=== PATIENT | male | born 1940 | race Caucasian/White ===

== ENCOUNTER → 2024-07-20 13:26 | Outpatient (REF) | payer MEDICARE, SELFPAY | LOC: HWRAD 13:26 | PROVIDERS: ATTENDING PHYSICIAN Chiropractor; FAMILY PHYSICIAN Family Medicine | DX: M53.2X7 Spinal instabilities, lumbosacral region (principal); R10.2 Pelvic and perineal pain | CPT/HCPCS: 72110; 72170 ==

== ENCOUNTER 2025-06-09 19:09 | Inpatient (IN) | payer MEDICARE, SELFPAY ==
[2025-06-09] VITALS (15 sets, daily range): BP systolic 135–166; BP diastolic 37–69; BMI 27.7; BMI 26.9
--- NOTE | 2025-06-09 15:27 | ED.GENMED ---
History of Present Illness
General
Chief Complaint: Heart Rate Problem
Source: patient
Exam Limitations: none
Time Seen by Provider: 06/09/25 15:12
Nursing documentation reviewed up to this point in time: agreed with
History of Present Illness
History of Present Illness:
85-year-old male with a past medical history of hypertension, hyperlipidemia, diabetes, pancreatic cancer status post Whipple who presents to the emergency department for evaluation of weakness�he was sent in by urgent care after found to be
markedly bradycardic on EKG. Patient reports that for the past month or 2 he has had progressive intermittent weakness and shortness of breath particularly with activity. He says that he has had recently some increasing lightheadedness when moving
around. He says that last night he got up to go to the bathroom and was so weak that he fell down which ultimately prompted his friend to take him to urgent care today for evaluation of his weakness. Fortunately he says he did not suffer any
injuries during the fall, did not hit his head or sustain any injuries to his extremities. He is not on any blood thinners. He has not had any chest pain, fever, chills, cough. Has not had any swelling in the legs. No other acute issues
recently. At urgent care today was found to be markedly bradycardic�patient says that his heart rate normally runs low in the 50s or 40s but never in the 30s as it has been today. He says that he sees a director of loss prevention named Dr. Mccain but to his
knowledge has not had any cardiac issues and says that he is not on any medicines for his heart.
Review of Systems
Review of Systems
All Other Systems: ROS reviewed and negative except as documented in HPI and ROS
Constitutional: Denies fever
Respiratory: Reports trouble breathing; Denies cough
Cardiac: Denies chest pain or palpitations
ABD/GI: Denies abdominal pain, nausea or vomiting
: Denies flank pain
Musculoskeletal: Denies neck pain or back pain
Neurological: Reports dizzy; Denies headache
Phy Exam
Physical Exam
Physical Exam:
General: Awake, alert, oriented x3; no acute distress
Head: Normocephalic, atraumatic
Eyes: Conjunctiva normal, pupils equal round and reactive to light bilaterally
Throat: Airway intact, handling secretions
Neck: Trachea midline, no JVD noted, no cervical spine tenderness
Back: No signs of trauma to the back or flank
Lungs: Clear to auscultation bilaterally, no wheezing, rales, rhonchi
Heart: Bradycardia with regular rhythm, no murmurs, gallops, or rubs appreciated
Abd: Soft, non distended, nontender
Neuro: Cranial nerves grossly intact, speech fluid, motor and sensory grossly intact
Skin: No signs of acute trauma
Extremities: Extremities are atraumatic, no edema in extremities, equal pulses in all extremities; he is moving all extremities equally without any pain
Scores
Heart Failure Risk
Heart Failure Risk Score: Not Applicable
Heart Score for Chest Pain Patients
STEMI patient?: Not applicable
Withdrawal Assessment of Alcohol
Withdrawal Assessment Completed?: Not applicable
Course
Orders/Labs/Results
Orders:
Orders
06/09/25 14:54
Electrocardiogram (*1) Urgent
Reason for Study: Bradycardia / Tachycardia
EKG- Treatment ONCE
06/09/25 15:25
CARDIOLOGY CONSULT Urgent
Consulting Provider: Yamil Garcia
Was physician already notified: Yes
06/09/25 15:26
Cardiac Monitoring- Treatment ONCE
IV Insert/Care/Rem.- Treatment PRN
Vital Signs- Treatment ONCE
Frequency: Hourly
Atropine Sulfate [Atropine 0.1 mg/ml Syringe] 1 mg .ROUTE .STK-MED ONE
CR Chest Portable - 1 View Urgent
Comment:
Reason For Exam: weakness
Reason Study Needs to be Portable: Unable to Transport
Pulse Ox/cont/shift [RESP] Stat
Quantity: 1
06/09/25 15:27
Complete Blood Count/With Diff Urgent
Comprehensive Metabolic Panel Urgent
Magnesium Urgent
TSH Reflex To Free T4 Urgent
Troponin I Urgent
06/09/25 15:29
EKG [Electrocardiogram (*1)] Urgent
Reason for Study: Bradycardia / Tachycardia
EKG- Treatment ONCE
06/09/25 16:14
PTT Urgent
Prothrombin Time Urgent
06/09/25 17:02
Echo 2D MMode Color/Doppler Routine
Reason for Study: complete heart block
06/09/25 17:03
Lactate Level [Lactic Acid] Urgent
Urinalysis Reflex To Culture Urgent
Date Specimen was Collected: 06/09/25
Time Specimen was Collected: 17:11
06/09/25 17:13
0.9% Sodium Chloride 1000 ml [Nss] 1,000 ml IV BOLUS
06/09/25 17:14
Add On- LAB Urgent
Tests Added?: urine sodium, urine osml
CPK [Creatine Phosphokinase] Urgent
Insulin Aspart [NOVOLOG vial] 5 units SC NOW STA
06/09/25 17:15
Blood Culture Q30M
LANIE Source: Blood/Venous
Specimen Description:
06/09/25 17:45
Blood Culture Q30M
LANIE Source: Blood/Venous
Specimen Description:
Abnormal Lab Results
06/09/25 06/09/25
15:27 16:14
WBC 26.6 H 10^3/uL
(4.8-10.8)
RBC 4.35 L 10^6/uL
(4.70-6.10)
Hgb 11.9 L g/dL
(13.0-18.0)
Hct 35.8 L %
(39.0-52.0)
PT 18.2 H Sec
(11.4-14.6)
APTT 58.3 H Sec
(23.4-35.0)
Sodium 126 L mmol/L
(135-145)
Potassium 5.8 H mmol/L
(3.5-5.1)
Chloride 97 L mmol/L
(98-107)
BUN 24 H mg/dl
(9-20)
Creatinine 1.4 H mg/dL
(0.7-1.3)
Glucose 369 H mg/dl
(70-99)
Troponin I 0.056 H* ng/ml
Total Protein 5.6 L g/dl
(6.3-8.2)
Albumin 3.1 L g/dl
(3.5-5.0)
06/09/25 15:27
06/09/25 15:27
Vital Signs
Initial and Last Documented VS:
Initial Vital Signs
Temp Pulse Resp BP Pulse Ox
36.6 C 30 18 166/67 98
06/09/25 14:56 06/09/25 14:56 06/09/25 14:56 06/09/25 14:56 06/09/25 14:56
Last Documented Vital Signs
Temp Pulse Resp BP Pulse Ox
36.6 C 31 13 146/43 96
06/09/25 14:56 06/09/25 16:45 06/09/25 16:45 06/09/25 16:40 06/09/25 16:45
MDM/Problems Addressed
Differential Diagnosis Includes:
2-1 heart block: Primary carlos-arrhythmia, hypothyroidism, electrolyte abnormality,etc
MDM/Problems Addressed:
85-year-old male with history as noted presents for generalized weakness as described above. Went to urgent care initially and noted to have significant bradycardia and was sent to the ER. He is actually hypertensive here and heart rate 30, EKG in
triage shows Mobitz type II heart block. Brought back to a room and placed on medical clerical assistant, IV established and labs sent off including CBC and a CMP, thyroid studies, troponins. He is not on any AV chitra blocking agents. Case discussed with
cardiology for consultation, plan for likely IMU admission and pacer tomorrow.
Labs reviewed: CBC showed marked leukocytosis to 26.6�patient denies any recent fevers or infectious symptoms. His chest x-ray showed no pneumonia. Added urinalysis, lactate and blood cultures for complete infectious workup but at this point no
clear infectious etiology to leukocytosis. His chemistry shows mild to moderate hyponatremia with sodium of 126, renal insufficiency with elevated BUN and creatinine, hyperkalemia as well as hyperglycemia. Suspect hemoconcentration is contributing
to all these lab normalities and IV fluids ordered. I also added CPK given report of fall last night although no prolonged downtime described. Added urine sodium and osmolality. Will treat with subcu insulin for hyperglycemia. Will admit for
continued treatment. Discussed case with hospitalist.
Chronic conditions affecting care:
Insulin-dependent diabetes
Acute Exacerbation and/or Progression of Chronic Illness:
Acute hyperglycemia managed with insulin
Acute hyponatremia managed with sodium chloride infusion
*Radiology
Radiology exam reviewed: radiology read reviewed
*Pulse Oximetry
SaO2: 99
Oxygen Mode of Delivery: Room air
Patient hypoxic: no (99%)
*EKG
Interpreted by ED Provider?: Yes
Heart Rate: 31
Rate: normal
Rhythm: sinus
[place]: left axis deviation
Interval: second degree mobitz II
QRS Pattern: right bundle branch block
Ischemia: no ischemia
*Critical Care Note
Total Time (30-74mins, 75-104mins- exclusive of procedures): 35
comment:
Critical care statement: A total of 35 minutes of critical care time was provided for this patient. This includes management of unstable vital signs, evaluation of the patient at bedside, frequent reassessment, discussion with
consultants/hospitalist, and review of pertinent medical records. This time was separate from time utilized to perform any aforementioned documented procedures
Data Reviewed
Source: patient and significant other
Patient Management
Discussion with other providers: Hospitalist (Discussed with hospitalist) and Renewals Representative (Discussed with cardiology)
Escalation/DeEscalation of care consider admission/obs:
Admission indicated
ED Attending Note
-
Portions of this chart may have been created with voice recognition software.� Occasional wrong word or��sound alike� substitutions may have occurred due to the inherent limitations of voice recognition software.
Discharge Plan
Departure
Patient Disposition: Admit
Date of Disposition: 06/09/25
Time of Disposition: 17:10
Admit to doctor: Fanny
Presentation/result/management discussed w/ accepting MD/DO: Hospitalist
Discharge Problem:
Mobitz type 2 second degree heart block, Leukocytosis, Hyperglycemia, ADELAIDA (acute kidney injury), Hyponatremia
Referrals:
Nishant Chavez MD [Family Provider, Family Practice]
Interventions
Interventions:
*Risk Screen - Suicide Last Done: 06/09/25 15:01
*General Assessment Last Done: 06/09/25 15:01
*Neglect/Abuse Screening Last Done: 06/09/25 15:01
*ED COVID-19 Vaccine History Last Done: 06/09/25 15:01
ED- Cardiac Assessment Last Done: 06/09/25 15:35
ED- Pulmonary Assessment Last Done: 06/09/25 15:35
Discharge Date and Time
Print Language: SLOVAK
[2025-06-09 16:03] LABS: Hematocrit 35.8 % (39.0-52.0); Hemoglobin 11.9 g/dL (13.0-18.0); Mean Corp Hgb Conc. 33.2 g/dL (33.0-37.0); Mean Corpuscular Volume 82.3 fL (80.0-94.0); Platelet Count 288 10^3/uL (130-400); Red Cell Dist. Width 13.9 % (11.5-14.5)
[2025-06-09 16:13] LABS: ALT (SGPT) 29 U/L (0-50); AST (SGOT) 44 U/L (17-59); Albumin 3.1 g/dl (3.5-5.0); Alkaline Phosphatase 116 U/L (38-126); Blood Urea Nitrogen 24 mg/dl (9-20); Calcium 9.4 mg/dl (8.4-10.2); Carbon Dioxide 25 mmol/L (22-30); Chloride 97 mmol/L (98-107); Estimated Creatinine Clearance 37 ml/min; Glucose 369 mg/dl (70-99); Magnesium 1.9 mg/dl (1.6-2.3); Potassium 5.8 mmol/L (3.5-5.1); Sodium 126 mmol/L (135-145); Total Protein 5.6 g/dl (6.3-8.2); eGFR 48.95
[2025-06-09 16:29] LABS: Troponin I 0.056 ng/ml
[2025-06-09 16:39] LABS: INR 1.48; PT 18.2 Sec (11.4-14.6)
[2025-06-09 16:40] LABS: APTT 58.3 Sec (23.4-35.0)
[2025-06-09] MEDS: NSS 1000 IV ×2 (17:15→17:22)
[2025-06-09] MEDS: NOVOLOG vial 5 UNITS SC (17:22)
--- NOTE | 2025-06-09 17:31 | HPS.HSE ---
Addendum entered and electronically signed by Coby Arenas MD 06/09/25 18:35:
if patient hypertensive - resume Amlodipine
Hyperkalemia
-hold Losartan as below
-Lokelma x 1 (also post fluids)
-repeat BMP this evening
Addendum entered and electronically signed by Coby Arenas MD 06/09/25 18:30:
Non Ischemic Troponin Elevation
-no chest pain
-continue to trend
Addendum entered and electronically signed by Coby Arenas MD 06/09/25 18:27:
Essential HTN
-hold BUSINESS SYSTEMS DEVELOPER Amlodipine
-hold Losartan-HCTZ
-monitor BP, may need PRN IV Hydralazine
Original Note:
Family Physician
-
Family Physician: Nishant Chavez
Chief Complaint
-
weakness
History of Present Illness
Mr. Luke Dozier is a 85 yo man with hx HTN, HLD, DM, pancreatic cancer s/p Whipple who was seen at urgent care for weakness, sent to ER for finding of bradycardia to 30's.
Patient states he has been feeling weak over past several month. He has also been caring for his (recent TAVR) and so reports not paying attention to his symptoms. Yesterday evening he slid off bed and had difficulty getting up, he felt too
weak.
He denies recent fevers/chills. No cough/congestion. No chest pain. He states he has been eating and drinking well. No LE swelling.
Medical History
Past Medical History
Past Medical History: Reports Other ( HTN, HLD, DM, pancreatic cancer s/p Whipple)
Past Surgical History: Reports Other (ipple )
Social History
Tobacco: Non-smoker
Alcohol: None
Family History
Family History: Not pertinent
Allergies / Home Medications
Allergies reflects when Allergies were last updated in [employer].
Home Medications with original date entered in [employer]
Allergy/Medication List:
Allergies
Allergy/AdvReac Type Severity Reaction Status Date / Time
No Known Allergies Allergy Unverified 06/09/25 14:57
Home Medications
amlodipine 5 mg tablet 5 mg PO DAILY 06/09/25
dabigatran etexilate 150 mg capsule (Pradaxa) 150 mg PO BID 06/09/25
glimepiride 4 mg tablet 4 mg PO DAILY 06/09/25
insulin glargine 100 unit/mL subcutaneous solution (Lantus U-100 Insulin) 10 unit SC QPM 06/09/25
insulin lispro 100 unit/mL subcutaneous pen 6 unit SC TID 06/09/25
shpvwl-tcxzelgc-ertfyng 12,000-38,000-60,000 unit capsule,delayed rel (Creon) 1 cap PO TID 06/09/25
losartan 100 mg-hydrochlorothiazide 25 mg tablet 1 tab PO DAILY 06/09/25
metformin 500 mg tablet,extended release 24 hr 1,000 mg PO BID 06/09/25
rosuvastatin 5 mg tablet 5 mg PO DAILY 06/09/25
Review of Systems
-
History Source: Patient
A 12 point ROS was completed and negative except as noted: Yes
Physical Exam
Vital Signs
Vital Signs
Temp Pulse Resp BP Pulse Ox
97.8 F 31 13 146/43 96
06/09/25 14:56 06/09/25 16:45 06/09/25 16:45 06/09/25 16:40 06/09/25 16:45
Physical Exam
General: No Apparent Distress and Conversant
HEENT: PERRLA
Respiratory: Clear; No Wheezes
Cardiac: Regular Rhythm and Bradycardia
GI: Soft and Non Tender
Musculoskeletal: No Edema
Skin: Warm and Dry; No Rash
Neuro: AO x 3
Psych: Calm
Laboratory Results
-
06/09/25 15:27
06/09/25 15:27
Laboratory Results
PT 18.2 Sec (11.4-14.6) H 06/09/25 16:14
INR 1.48 06/09/25 16:14
APTT 58.3 Sec (23.4-35.0) H 06/09/25 16:14
Total Bilirubin 0.5 mg/dl (0.2-1.3) 06/09/25 15:27
AST 44 U/L (17-59) 06/09/25 15:27
ALT 29 U/L (0-50) 06/09/25 15:27
Alkaline Phosphatase 116 U/L (38-126) 06/09/25 15:27
Troponin I 0.056 ng/ml H* 06/09/25 15:27
Data Reviewed
-
Diagnostic Radiology: Report Reviewed by me
Lab Data: Labs Reviewed by me
Impression/Plan
-
Mr. Luke Dozier is a 85 yo man with hx HTN, HLD, DM, pancreatic cancer s/p [place] who was seen at urgent care for weakness, sent to ER for finding of bradycardia to 30's.
Triage VS: T 36.6, P 30, RR 18, BP 166/67, SpO2 98%
LABS: WBC 26.6, Hg 11.9, PLT 288, Na 126, K+ 5.8, Cl 97, Cr 1.4, Glucose 369, Magnesium 1.9, T. Bili 0.5, AST 44, ALT 29, Alk Phos 116
Trop 0.056
TSH 1.54
EKG: sinus bradycardia @ 31, 1st degree AV block, RBBB, Left anterior fascicular block
CXR
IMPRESSION:
1. Normal heart size without radiographic evidence for acute pulmonary edema.
2. Mild elevation of the right hemidiaphragm.
3. Cardiac pacemaker-defibrillator pads projecting over the mediastinum.
MAR: 5 units IV insulin, NS 1L
Symptomatic Bradycardia
-seen by Cardiology in the ER
-admit to IMU
-pacer pads on patient, atropine at bedside
-during my interview, HR in 50's
-He is not on AV blocking medications at home
-hold Pradaxa (he is not sure why he is on this medication)
-follow up Lyme testing
-NPO for PPM tomorrow
*Use of Pradaxa - patient is unsure why he is on this medication. He denies history of atrial fibrillation. Per , may have been started by Vascular surgeon. Will hold for now, obtain records.
Leukocytosis
-patient without signs of infection
-CXR without e/o pneumonia.
-test covid, follow up UA and blood cultures
-follow up Lyme as above
Hyponatremia
-patient is on Losartan - HCTZ at home - hold
-receiving fluids in ER given bradycardia concern for poor perfusion
-urine studies ordered
-hold further fluids and fluid restrict
-repeat labs at 11:30 PM (RN to touch base with overnight provider)
Mild ADELAIDA
-creatinine obtained recently was 1.2
-follow up repeat post fluids
-hold Losartan-HCTZ
DM
Hyperglycemia
-follow up A1c
-1/2 dose Lantus this evening as patient will be NPO
-hold BUSINESS SYSTEMS DEVELOPER Glimepiride and Metformin
-resume Lispro when diet ordered
-repeat BGL now and will order additional short acting insulin
Pancreatic CA s/p Whipple
-Creon with meals
DVT PPx SCD
FULL CODE
76 minutes spent on patient care
[2025-06-09 17:33] LABS: Nucleated Red Blood Cells % 0 % (-)
[2025-06-09 17:43] LABS: Urine Character Clear (Clear)
--- NOTE | 2025-06-09 17:46 | CON.CAR ---
Consultation
Consultation Request
Date/Time Consultation Requested: June 09, 2025
Date/Time Consultation Performed: June 09, 2025
Requesting Provider: ER and hospitalist
Performing Provider: Jose
Reason for Consultation: Complete heart block
Medical History
-
Chief Complaint: Complete heart block
History of Present Illness:
Luke is here with his partner and is a very pleasant 85-year-old male who has 3 months of fatigue and dyspnea with any exertion. No syncope or presyncope. He presents with a heart rate of 30 and complete heart block with a right bundle branch
escape. Remote Whipple for pancreatic cancer 16 years ago doing well. He does have hyponatremia hyperkalemia creatinine 1.4 sugar in the 300s and white blood cell count of 26 on presentation. Discussed case with internal medicine team and they
will be working him up for any signs of infection.
Past Medical History
Past Medical History: Arrhythmias and Cancer
Past Surgical History: Other (Whipple)
Social History
Tobacco: Former Smoker
Alcohol: None
Drug: None
Personal: Partner
Living: With Family
Employment: Not Employed
Family History
Family History: Reviewed & Not Pertinent
Allergies / Home Medications
Allergy/AdvReac Type Severity Reaction Status Date / Time
No Known Allergies Allergy Unverified 06/09/25 14:57
Review of Systems
-
All other systems: Negative unless noted
Constitutional: Fatigue
Physical Exam
Vital Signs
Temp Pulse Resp BP Pulse Ox
97.8 F 31 13 146/43 96
06/09/25 14:56 06/09/25 16:45 06/09/25 16:45 06/09/25 16:40 06/09/25 16:45
Lab Results
06/09/25 15:27
06/09/25 15:27
Troponin I 0.056 ng/ml H* 06/09/25 15:27
Physical Exam
General: Well Developed and Well Nourished
HEENT: Normocephalic and Anicteric
Respiratory: Clear
Cardiac: S1/S2 and Regular Rhythm
Breast: Deferred by me
GI: Soft, Non Tender and Non Distended
Rectal: Deferred by Provider
Musculoskeletal: No Clubbing and No Cyanosis
Skin: Warm, Dry and Rash
Neuro: Awake, Alert and Oriented
Hematologic/Lymphatic: No Lymphadenopathy
Psych: Calm
Impression / Plan
-
Impression:
Complete heart block�duration likely 2 to 3 months
History of Whipple procedure 16 years ago
Sees a rolled ham lacer at [facility]
Hyponatremia
Hyperkalemia
Leukocytosis
Renal insufficiency
Recommendations:
Discussed case with primary service and agreement. Appreciate workup for infection with urinalysis chest x-ray and as per their recommendations.
Agree with gentle hydration and recheck of labs
Echo in a.m.
N.p.o. after midnight for dual-chamber pacemaker via the left shoulder and discussed a 1000 risk of and a 1% risk of pneumothorax tamponade infection or bleeding. Placed device orders. I communicated with patient and partner that procedure
would either be late in the day tomorrow or late in the day Tuesday. They are in understanding.
Data Reviewed
-
EKG: Tracing Personally Visualized and interpreted
Radiology: Image Personally Visualized and interpreted
Labs: Labs Reviewed by me
Old Records: Requested and Reviewed
[2025-06-09 18:05] LABS: Urine Red Blood Cell 0-2 /HPF (0-2)
[2025-06-09] MEDS: LOKELMA 10 GRAM PO (18:31)
[2025-06-09 18:34] LABS: COVID-19 Antigen Negative (Negative)
[2025-06-09 18:38] LABS: Glucose - Point of Care 308 mg/dl (70-99)
[2025-06-09] MEDS: NOVOLOG vial 6 UNITS SC (19:20)
--- NOTE | 2025-06-09 20:58 | PTCARENOTE ---
Received pt from ED via stretcher. Pt AAOx3. SB on monitor with 1st degree AV block, BBB, and prolonged QT. Asymptomatic at this time. Pacer pads on pt. Atropine at bedside per order. Pulse ox 97% on RA; lungs CTA. Oriented pt to room.
Hygiene provided. Pt resting in bed with call garvey in reach.
[2025-06-09] MEDS: LANTUS 0.05 UNITS SC (23:11)
[2025-06-09 23:20] LABS: Glucose - Point of Care 72 mg/dl (70-99)
[2025-06-10] VITALS (15 sets, daily range): BP systolic 101–184; BP diastolic 38–148
[2025-06-10 00:03] LABS: Blood Urea Nitrogen 22 mg/dl (9-20); Calcium 9.2 mg/dl (8.4-10.2); Carbon Dioxide 25 mmol/L (22-30); Chloride 105 mmol/L (98-107); Estimated Creatinine Clearance 39 ml/min; Glucose 74 mg/dl (70-99); Potassium 4.3 mmol/L (3.5-5.1); Sodium 133 mmol/L (135-145); eGFR 53.50
[2025-06-10 00:15] LABS: Troponin I 0.037 ng/ml
[2025-06-10 03:41] LABS: Glucose - Point of Care 101 mg/dl (70-99)
[2025-06-10 05:24] LABS: Glucose - Point of Care 143 mg/dl (70-99)
[2025-06-10 05:58] LABS: Blood Urea Nitrogen 22 mg/dl (9-20); Calcium 9.3 mg/dl (8.4-10.2); Carbon Dioxide 23 mmol/L (22-30); Chloride 106 mmol/L (98-107); Estimated Creatinine Clearance 47 ml/min; Glucose 119 mg/dl (70-99); Hematocrit 30.6 % (39.0-52.0); Hemoglobin 10.5 g/dL (13.0-18.0); Magnesium 2.0 mg/dl (1.6-2.3); Mean Corp Hgb Conc. 34.3 g/dL (33.0-37.0); Mean Corpuscular Volume 80.7 fL (80.0-94.0); Nucleated Red Blood Cells % 0 % (-); Platelet Count 226 10^3/uL (130-400); Potassium 4.1 mmol/L (3.5-5.1); Red Cell Dist. Width 13.8 % (11.5-14.5); Sodium 133 mmol/L (135-145); eGFR > 60.00
[2025-06-10] MEDS: ZENPEP DELAYED RELEASE CAPSULE PO ×2 (07:42→12:09)
[2025-06-10 10:39] LABS: Glycohemoglobin (HgbA1c) 7.7 % (4.0-5.6)
--- NOTE | 2025-06-10 11:08 | PTCARENOTE ---
Pt received from awake overnight monitor RN. Pt Ox3 and [place]. No complaints at this time. Sinus carlos on tele with a BBB, HR dips down to 38 at times but does not sustain. BP stable. Pacer pads in place and atropine at bedside. Pt using urinal without
difficulty. Pt currently resting in bed with no complaints. Pt's at bedside, updated on plan of care.
[2025-06-10 11:46] LABS: Glucose - Point of Care 161 mg/dl (70-99)
--- NOTE | 2025-06-10 12:04 | CM ---
Initial assessment completed with patient who lives with his SO in a 1 story home plus loft with B/B on , 1 step to enter. 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 No DME. No in-home services. Does have a HC-POA. Was in the
[employer] and has VA benefits. No psychiatric hospitalizations. PCP is Dr. Nishant Chavez. [facility]acy is [facility] in [place]. Patient is for double chamber pacer today for complete heart block. Discharge POC: Anticipate home with no needs.
--- NOTE | 2025-06-10 13:37 | W.PN.HOSP.TC ---
Today's Communication/Plan
-
Monitor vital signs
see plan
Plan for pacemaker
Discussed with spouse at bedside
lyme serology pending
Echo
Assessment / Plan
Assessment / Plan
General: No Apparent Distress and Conversant
HEENT: PERRLA
Respiratory: Clear; No Wheezes
Cardiac: Regular Rhythm and Bradycardia
GI: Soft and Non Tender
Musculoskeletal: No Edema
Neuro: AO x 3
Psych: Calm
Symptomatic Bradycardia
Cardiology following, plan for pacemaker
-pacer pads on patient, atropine at bedside
-during my interview, HR in 50's
-He is not on AV blocking medications at home
-hold Pradaxa (he is not sure why he is on this medication). Per spouse likely was started by PCP to prevent stroke
-follow up Lyme testing
-NPO for PPM
echo
*Use of Pradaxa - patient is unsure why he is on this medication. He denies history of atrial fibrillation. Per , may have been started by ?Vascular surgeon. Will hold for now, obtain records.
Leukocytosis
-patient without signs of infection
-CXR without e/o pneumonia.
COVID-negative, UA noted. Follow urine culture, blood
-test covid, follow up UA and blood cultures
-follow up Lyme as above
Hyponatremia
-patient is on Losartan - HCTZ at home - hold
-receiving fluids in ER given bradycardia concern for poor perfusion
-urine studies ordered
-hold further fluids and fluid restrict
Sodium improving, 133 today. Monitor
Mild ADELAIDA
Improving
-follow up repeat post fluids
-hold Losartan-HCTZ
Essential HTN
-hold MANAGER CARDIAC CATH Amlodipine
-hold Losartan-HCTZ
-monitor BP, may need PRN IV Hydralazine
Non Ischemic Troponin Elevation
-no chest pain
-continue to trend
Hyperkalemia
-hold Losartan as below
-Lokelma x 1 on admission, resolved
DM
Hyperglycemia
-follow up A1c 7.7
-1/2 dose Lantus on admission as NPO
-hold MANAGER CARDIAC CATH Glimepiride and Metformin
-resume Lispro when diet ordered
-repeat BGL now and will order additional short acting insulin
Pancreatic CA s/p Whipple
-Creon with meals
DVT PPx SCD
FULL CODE
I spent a total of 53 minutes with the patient or on the floor. More than 50% of this time involved counseling and coordination of care.
Anticipated Discharge: 24 - 48 hours
Subjective/Interval History
-
Date of Service: June 10, 2025
Denies chest pain
Objective Data
-
Labs:
Laboratory Results
06/10/25
05:22
WBC 17.6 H
Hgb 10.5 L
Hct 30.6 L
Plt Count 226 D
Sodium 133 L
Potassium 4.1
Chloride 106
Carbon Dioxide 23
BUN 22 H
Creatinine 1.1
Glucose 119 H
Calcium 9.3
Vital Signs:
Vital Signs
Temp Pulse Resp BP Pulse Ox
97.9 F 50 11 122/38 97
06/10/25 11:25 06/10/25 04:00 06/10/25 04:00 06/10/25 04:00 06/10/25 11:51
I&O
06/09/25 06/10/25 06/11/25
06:59 06:59 06:59
Intake Total 240 / 240
Output Total 425 / 425 225 / 225
Balance -185 / -185 -225 / -225
[2025-06-10 15:57] LABS: Lyme Antibody Screen, EIA Negative (Negative)
--- NOTE | 2025-06-10 16:53 | ITS.CL.PACE ---
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
Pacemaker Implant
Procedure Report:
Left Bundle Branch pacing Permanent Pacemaker Placement:
Mr. Nieto is an 85 years old gentleman with severe bradycardia and pre-syncope with intermittent heart block is here in EP lab for pacemaker implantation.
Indications:
Severe symptomatic bradycardia, and high grade AV block
Date of the Procedure:
06/10/2025
Pre-Operative Diagnosis:
Severe symptomatic bradycardia, and high grade AV block
Post-Operative Diagnosis: Severe symptomatic bradycardia, and high grade AV block
Procedure Performed: Conduction system pacing Pacemaker implantation
Performing Physician:
Rhonda Wei MD
Assistants:
EP staff
Anesthesia:
See anesthesia records
Detailed Description of the Procedure:
The patient was identified using hospital identification and informed consent obtained for the procedure. The risks were explained to the patient and the family including, but not limited to: Bleeding, infection, arrhythmia, stroke,
vascular/cardiac/lung puncture, surgery, pacemaker dependency/device malfunction. All questions were answered.
Anesthesia service provided sedation as reported separately. Antibiotics administered IV for risk of bacterial colonization. After obtaining informed and written consent, the patient was brought to the electrophysiology laboratory.
The initial rhythm was sinus bradycardia.
The left chest was prepped from the nipple to the angle of the jaw with chlorhexidine, and draped following sterile technique in usual routine.�
A surgical pause and time out was performed immediately prior to the procedure with review of her medical history, recent labs, allergies and medications with site of procedure identified and consent noted in the chart. Antibiotics pre operatively
given. All team members concurred.
The left infraclavicular region was prepped and draped in the usual sterile fashion. Local anesthesia was administered subcutaneously using 1% lidocaine / Bupivacaine. The venogram was done and axillary vein route identified. Using micropuncture
apparatus, axillary vein was cannulated. The vascular sheaths over guidewires were introduced for lead access. Guidewires were placed and were advanced into the right ventricle and the right atrium.
The guide wire was advanced to the RA and was crossed through the tricuspid valve into the RV. The preformed curved long hemostatic peel away HIS sheath was advanced into the RV cavity. A left bundle pacing wire was advanced into the sheath to the
tip with ventricular signals noted with unipolar manner. The HIS location was identified under guidance of the flouroscopy and the pacing wire signals. The sheath with the pacing lead was moved deeper into the RV cavity on the septum at a more
inferior and distal to the HIS signals.
Once adequate signals were noted on the electrograms of the pacing lead in the sheath with W pattern signals on the RV septum, the lead was advanced and clockwise turns were done under fluoroscopic guidance. The septum was engaged and the lead was
paced intermittently after every 2-3 turns. The Impedance of the lead was measured that remained stable around 8-900 Ohm and the lead was not able to advance into the septum. The pacing signals from the lead showed only RV septal pacing, though
narrow but not left bundle pacing. This was thought to be due to the entanglement effect of the lead to the septal endocardium. The decision was made to remove the lead and relocate to another locations.
Another septal location was identified with adequate signals noted on the pacing leads and good flouroscopic location. There was sheath approximation conformed on MACEDONIAN view and the pacing lead was advanced with clockwise turns into the septal
location. The septum was successfully engaged. The lead was paced and septal pacing was noted. The sheath was placed again to the septum and the lead was advanced 2-3 turns with pacing with each advancement. The ventricular capture was monitored
throughout and the captures gradually changed from RV pacing to non-selective pacing to LBB pacing with R wave on V1.
With RBBB pattern noted on the pacing lead, it was decided to accept the location as optimal location. The long guiding sheath was cut and removed from the RV without change in lead position, impedance, sensing, or capture. The lead was sutured to
the underlying pectoralis fascia with 2-0 Ethibond stitches.
Using a peel away 7Fr sheath, atrial lead was placed in the right atrial appendage with active fixation. Excellent sensing, threshold and impedance noted.
A purse string suture was deployed using the 2-0 Vicryl suture.
The leads were attached to the pulse generator in standard configuration with acceptable sensing and threshold parameters. The pocket was created using blunt dissection. Excellent hemostasis achieved. The pocket was irrigated with antibiotic
solution; the pocket was inspected with no active bleeding noted. The device and the leads were placed in the pocket.
Deep subcutaneous tissues were closed with two layers of 2-0 VLock sutures, and the dermis was reopposed using a running 4-0 Monocryl subcuticular suture. Sponge counts / sharp counts were appropriate.
Procedure End:
The procedure was tolerated well. Aquacel bandaged was applied.
Estimated Blood loss:
10 cc
Specimens Removed:
No cultures and no specimens were obtained. No intraoperative pathology was identified.
Urine output:
None
Packs / Drains/ Tubes:
None
Instrument / Sponge Count Correct:
Yes
Flouro time:
7.3 MIN
Complications of the Procedure:
None
Condition of Patient at Time of Transfer:
Hemodynamically stable with no neurological or vascular compromise.
Device information:�
Generator: 2359 Media; Model: W1DR01; Serial # [id number]�
����������� Atrial Lead: MedUnderground Cellar; Model: 5076-52; Serial # [id number]
����������������������� Measured data in the right atrium was sensing of 2.6 mV, impedance of 532 ohms and threshold of 1.0 V at 0.4ms.
����������� RV LBB pacing lead: Medtronic; Model: 3830-69; Serial # [id number]
����������������������� Measured data on the RV lead was sensing of 11mV, impedance of 855 ohms and threshold of 0.7 V at 0.4ms.
PROGRAMMING PARAMETERS:�
Kamran parameter settings were AAIR <=> DDDR 60-130
����������� Paced AV interval: 180ms
����������� Sensed AV interval: 150 ms.
����������� Rate Adaptive A-V Interval: on
Summary:
Successful implantation of dual chamber MRI compatible conduction system (LBB) pacing Medtronic PRINTED CIRCUIT BOARDS PINNER-P.
Results/Recommendations:
-Please follow up CXR�
1. Please provide patient with adequate pain control�
Instructions to be given to patient:�
- Please follow up with [facility] to get your wound checked in 2 weeks of your discharge.
- Do not wet incision site until after it is evaluated at cardiology clinic. No baths or showers until then. Sponge baths / showers are OK but dab dry the dressing after it is wet.�
- Allow 'steri strips' to fall off on their own�
- Do not lift left elbow above shoulder, particularly with sudden jerking movements, for 1 month�
- Do not lift anything weighing more than 5 pounds with the left arm for 1 month�
- If you notice any fevers, shortness of breath, lightheadedness, chest pain, or worsening swelling in the wound site, please contact the arrhythmia clinic, contact your family consumer science teacher, or present to the hospital for evaluation.�
Rhonda Wei MD
Electrophysiology
[2025-06-10] MEDS: LANTUS 0.05 UNITS SC (18:10)
[2025-06-10] MEDS: CRESTOR 5 MG PO (18:10)
[2025-06-10] MEDS: ZENPEP DELAYED RELEASE CAPSULE 1 CAPSULE PO (18:10)
[2025-06-10 18:17] LABS: Glucose - Point of Care 140 mg/dl (70-99)
[2025-06-10] MEDS: NORVASC 5 MG PO (18:28)
[2025-06-10] MEDS: TYLENOL 1000 MG PO (19:56)
[2025-06-10] MEDS: ULTRAM 25 MG PO (21:01)
[2025-06-10 22:05] LABS: Glucose - Point of Care 334 mg/dl (70-99)
[2025-06-10] MEDS: ANCEF 5 IV (22:47)
--- NOTE | 2025-06-10 23:54 | PTCARENOTE ---
Received pt at change of shift. Bed rest ended at 1900. Sling remains in place until morning. Pt c/o pain in left side of neck. Tylenol ordered and administered. Pt still c/o of pain. Tramadol ordered and administered. Pt states pain is 0
when not moving but movement causes the pain to be a 5/10. Accucheck this evening was 334. Rechecked again, resulted at 269. No insulin coverage overnight required. Pt resting in bed with call garvey in reach.
[2025-06-11] VITALS (16 sets, daily range): BP systolic 127–179; BP diastolic 55–81; PULSE 60
[2025-06-11 00:04] LABS: Glucose - Point of Care 269 mg/dl (70-99)
[2025-06-11] MEDS: ANCEF 5 IV (05:56)
[2025-06-11 06:29] LABS: Hematocrit 35.8 % (39.0-52.0); Hemoglobin 11.7 g/dL (13.0-18.0); Mean Corp Hgb Conc. 32.7 g/dL (33.0-37.0); Mean Corpuscular Volume 81.9 fL (80.0-94.0); Nucleated Red Blood Cells % 0 % (-); Platelet Count 258 10^3/uL (130-400); Red Cell Dist. Width 14.0 % (11.5-14.5)
[2025-06-11 06:44] LABS: ALT (SGPT) 28 U/L (0-50); AST (SGOT) 41 U/L (17-59); Albumin 3.0 g/dl (3.5-5.0); Alkaline Phosphatase 142 U/L (38-126); Blood Urea Nitrogen 20 mg/dl (9-20); Calcium 9.2 mg/dl (8.4-10.2); Carbon Dioxide 26 mmol/L (22-30); Chloride 103 mmol/L (98-107); Estimated Creatinine Clearance 47 ml/min; Glucose 184 mg/dl (70-99); Magnesium 1.9 mg/dl (1.6-2.3); Potassium 4.4 mmol/L (3.5-5.1); Sodium 132 mmol/L (135-145); Total Protein 5.5 g/dl (6.3-8.2); eGFR > 60.00
--- NOTE | 2025-06-11 08:30 | PN.CDI ---
CDI
- -
CDI:
Physician Documentation Request
Admit Date: 06/09/25 19:09
Dear Doctor Sam,
Patient admitted for bradycardia.
06/10 Hospitalist PN: 'Non Ischemic Troponin Elevation -no chest pain -continue to trend'
Laboratory Tests
06/09/25 06/09/25
15:27 23:30
Troponin I 0.056 H* 0.037 H*
Please clarify the following regarding the documented troponin elevation:
Nonischemic myocardial injury
Lab abnormality
Other
Use of terms such as suspected, likely, concern for, or probable (associated with a specific diagnosis that is being evaluated, monitored, or treated as if it exists) are acceptable and can be coded in the inpatient setting, when documented at the
time of discharge.
Thank you,
Jennifer Yepez RN, BSN
CDI Specialist
Available ia [place] text
Please use your independent medical judgment in providing your response.
[2025-06-11 09:01] LABS: Glucose - Point of Care 149 mg/dl (70-99)
[2025-06-11] MEDS: NOVOLOG FLEXPEN-LOW RESISTANCE SC ×2 (09:04→20:57)
[2025-06-11] MEDS: NORVASC 5 MG PO (09:09)
[2025-06-11] MEDS: ZENPEP DELAYED RELEASE CAPSULE 1 CAPSULE PO ×2 (09:09→13:31)
--- NOTE | 2025-06-11 09:28 | PTCARENOTE ---
Pt received from warehouse worker 2nd shift RN. Ox3 and hard of hearing. 1000% AV paced on tele with BP's in the 160-170's. Pacer site CDI, no swelling noted, arm sling removed and echo is currently being performed. Informed pt of movement restrictions s/p pacer
placement. He does not complain of any pain. Call garvey within reach. Pt makes needs known.
[2025-06-11] MEDS: ULTRAM 25 MG PO ×2 (10:32→17:42)
[2025-06-11] MEDS: COZAAR 100 MG PO (10:32)
[2025-06-11] MEDS: NOVOLOG FLEXPEN SC ×2 (12:03→20:57)
[2025-06-11] MEDS: NOVOLOG FLEXPEN-LOW RESISTANCE 4 UNITS SC (12:04)
[2025-06-11] MEDS: NOVOLOG FLEXPEN 6 UNITS SC (12:04)
[2025-06-11 12:11] LABS: Glucose - Point of Care 328 mg/dl (70-99)
--- NOTE | 2025-06-11 12:55 | W.PN.CARDCBS ---
Today's Communication / Plan
-
Stable cardiology status
Sign off
Impression / Plan
-
Impression:
Complete heart block�duration likely 2 to 3 months/status post permanent pacemaker 06/10/2025
History of Whipple procedure 16 years ago
Sees a brickmason apprentice at [facility]
Hyponatremia
Leukocytosis
Renal insufficiency
Recommendations:
He tolerated pacemaker well
Stable cardiology status for discharge
Will sign off, call with questions
Progress Note - Mobile Product Manager
Subjective
Date of Service: June 11, 2025
No complaints
Objective
Labs:
06/11/25 05:55
06/11/25 05:55
Labs
Hgb 11.7 g/dL (13.0-18.0) L 06/11/25 05:55
Hct 35.8 % (39.0-52.0) L 06/11/25 05:55
Plt Count 258 10^3/uL (130-400) 06/11/25 05:55
PT 18.2 Sec (11.4-14.6) H 06/09/25 16:14
INR 1.48 06/09/25 16:14
APTT 58.3 Sec (23.4-35.0) H 06/09/25 16:14
Sodium 132 mmol/L (135-145) L 06/11/25 05:55
Potassium 4.4 mmol/L (3.5-5.1) 06/11/25 05:55
BUN 20 mg/dl (9-20) 06/11/25 05:55
Creatinine 1.1 mg/dL (0.7-1.3) 06/11/25 05:55
Glucose 184 mg/dl (70-99) H 06/11/25 05:55
Troponins
06/09/25 06/09/25
15:27 23:30
Troponin I 0.056 H* 0.037 H*
Vital Signs and I&O:
Vital Signs
Temp Pulse Resp BP Pulse Ox
98.4 F 61 19 168/56 98
06/11/25 11:30 06/11/25 10:00 06/11/25 10:00 06/11/25 10:32 06/11/25 10:18
Vital Signs
Temp Pulse Resp BP Pulse Ox
98.4 F 61 19 168/56 98
06/11/25 11:30 06/11/25 10:00 06/11/25 10:00 06/11/25 10:32 06/11/25 10:18
Intake & Output
06/09/25 06/10/25 06/11/25 06/12/25
06:59 06:59 06:59 06:59
Intake Total 240 / 240 720 / 720
Output Total 425 / 425 1275 / 1275 450 / 450
Balance -185 / -185 -555 / -555 -450 / -450
Physical Exam
Physical Exam
General: Well developed, well nourished in NAD.
Neck: Supple, no JVD, HJR, carotids +2 B/L, no bruits bilaterally.
Heart: Non displaced PMI, RRR, no murmurs, No S3, S4, no rubs.
Lungs: Clear to auscultation bilaterally, no wheeze, rhonchi, rubs bilaterally,
normal expiratory phase.
Left pacer dressings noted
Extremities: No clubbing, cyanosis or edema bilaterally.
Neuro: Grossly nonfocal, awake, alert and oriented x3.
--- NOTE | 2025-06-11 13:02 | W.PN.HOSP.TC ---
Addendum entered and electronically signed by Jesús Vargas MD 06/11/25 16:26:
temp noted 06/10. no further fever. leukocytosis slowly improving without abx. bcx so far neg. monitor
Original Note:
Today's Communication/Plan
-
Monitor vitals
See plan
Restart losartan
Continue to hold hydrochlorothiazide
Continue with insulin
Monitor leukocytosis
transfer out of IMU
Assessment / Plan
Assessment / Plan
General: No Apparent Distress and Conversant
HEENT: PERRLA
Respiratory: Clear; No Wheezes
Cardiac: Regular Rhythm
GI: Soft and Non Tender
Musculoskeletal: No Edema
Neuro: AO x 3
Psych: Calm
Symptomatic Bradycardia
Cardiology following
-He is not on AV blocking medications at home
-hold Pradaxa (he is not sure why he is on this medication). Per spouse likely was started by PCP to prevent stroke
-follow up Lyme testing neg
s/p PPM 06/10
*Use of Pradaxa - patient is unsure why he is on this medication. He denies history of atrial fibrillation. Per , may have been started by ?Vascular surgeon. Restart Pradaxa
Leukocytosis
-patient without signs of infection
-CXR without e/o pneumonia.
COVID-negative, UA noted. Follow urine culture, blood
-test covid, urine culture no growth, blood culture NGTD
-follow up Lyme as above
Hyponatremia
-patient is on Losartan - HCTZ at home - hold HCTZ
started losartan
Monitor sodium
Mild ADELAIDA
Improving
-follow up repeat post fluids
-hold Losartan-HCTZ
Essential HTN
-cw Amlodipine
cw losartan; hold HCTZ
-monitor BP, may need PRN IV Hydralazine
Non Ischemic myocardial injury
-no chest pain
monitor
Hyperkalemia
resolved
DM
Hyperglycemia
-follow up A1c 7.7
Restarted Lantus, lispro
- Restart CLINIC PHYSICIAN Glimepiride; hold metformin
Pancreatic CA s/p Whipple
-Creon with meals
DVT PPx pradaxa
FULL CODE
PT/OT
I spent a total of 53 minutes with the patient or on the floor. More than 50% of this time involved counseling and coordination of care.
Anticipated Discharge: Within 24 hours
Subjective/Interval History
-
Date of Service: June 11, 2025
has some neck pain
Objective Data
-
Labs:
Laboratory Results
06/11/25
05:55
WBC 16.0 H
Hgb 11.7 L
Hct 35.8 L
Plt Count 258
Sodium 132 L
Potassium 4.4
Chloride 103
Carbon Dioxide 26
BUN 20
Creatinine 1.1
Glucose 184 H
Calcium 9.2
Total Bilirubin 0.3
AST 41
ALT 28
Alkaline Phosphatase 142 H
Vital Signs:
Vital Signs
Temp Pulse Resp BP Pulse Ox
98.4 F 61 19 168/56 98
06/11/25 11:30 06/11/25 10:00 06/11/25 10:00 06/11/25 10:32 06/11/25 10:18
I&O
06/10/25 06/11/25 06/12/25
06:59 06:59 06:59
Intake Total 240 / 240 720 / 720
Output Total 425 / 425 1275 / 1275 450 / 450
Balance -185 / -185 -555 / -555 -450 / -450
[2025-06-11] MEDS: AMARYL 4 MG PO (13:31)
[2025-06-11] MEDS: TYLENOL 650 MG PO ×2 (13:31→21:05)
[2025-06-11] MEDS: BenGay-Like 1 APPLIC TOPICAL ×3 (13:32→21:09)
--- NOTE | 2025-06-11 16:21 | CM ---
Following patient. RN stated that patient is going to the floors today and may discharge tomorrow.
SHERRY Gould saw that patient was seen by PT/OT and just will need a walker that PT/OT will provide.
IMM completed at 16:20
PLAN: Home w/ walker.
[2025-06-11] MEDS: CRESTOR 5 MG PO (17:42)
[2025-06-11] MEDS: LANTUS 0.1 UNITS SC (17:42)
[2025-06-11 18:11] LABS: Glucose - Point of Care 233 mg/dl (70-99)
[2025-06-11] MEDS: ZENPEP DELAYED RELEASE CAPSULE PO (20:59)
[2025-06-11] MEDS: PRADAXA 150 MG PO (21:00)
[2025-06-11 21:49] LABS: Glucose - Point of Care 275 mg/dl (70-99)
[2025-06-12] VITALS (10 sets, daily range): BP systolic 150–190; BP diastolic 60–105; PULSE 61–98; O2SAT 96
[2025-06-12] MEDS: ANESTHETIC LOZENGE 1 LOZENGE PO (03:44)
[2025-06-12] MEDS: ULTRAM 25 MG PO ×3 (03:55→18:09)
[2025-06-12] MEDS: TYLENOL 650 MG PO ×2 (05:12→20:25)
[2025-06-12 07:31] LABS: Hematocrit 31.5 % (39.0-52.0); Hemoglobin 10.7 g/dL (13.0-18.0); Mean Corp Hgb Conc. 34.0 g/dL (33.0-37.0); Mean Corpuscular Volume 79.5 fL (80.0-94.0); Nucleated Red Blood Cells % 0 % (-); Platelet Count 218 10^3/uL (130-400); Red Cell Dist. Width 13.8 % (11.5-14.5)
[2025-06-12 07:54] LABS: ALT (SGPT) 22 U/L (0-50); AST (SGOT) 33 U/L (17-59); Albumin 2.8 g/dl (3.5-5.0); Alkaline Phosphatase 150 U/L (38-126); Blood Urea Nitrogen 16 mg/dl (9-20); Calcium 8.6 mg/dl (8.4-10.2); Carbon Dioxide 26 mmol/L (22-30); Chloride 100 mmol/L (98-107); Estimated Creatinine Clearance 47 ml/min; Glucose 172 mg/dl (70-99); Potassium 4.0 mmol/L (3.5-5.1); Sodium 129 mmol/L (135-145); Total Protein 5.1 g/dl (6.3-8.2); eGFR > 60.00
[2025-06-12 07:57] LABS: Glucose - Point of Care 165 mg/dl (70-99)
[2025-06-12] MEDS: NOVOLOG FLEXPEN-LOW RESISTANCE 1 UNITS SC ×2 (09:17→17:10)
[2025-06-12] MEDS: NOVOLOG FLEXPEN 6 UNITS SC ×3 (09:17→17:10)
[2025-06-12] MEDS: PRADAXA 150 MG PO ×2 (09:18→20:25)
[2025-06-12] MEDS: AMARYL 4 MG PO (09:19)
[2025-06-12] MEDS: BenGay-Like 1 APPLIC TOPICAL ×4 (09:19→21:30)
[2025-06-12] MEDS: ZENPEP DELAYED RELEASE CAPSULE 1 CAPSULE PO ×3 (09:19→16:25)
[2025-06-12] MEDS: NORVASC 5 MG PO ×2 (09:20→14:08)
[2025-06-12] MEDS: COZAAR 100 MG PO (09:20)
--- NOTE | 2025-06-12 10:03 | CM ---
Addendum entered by Nery Cooper 06/12/25 14:01:
Correction to note below. [facility] is NOT a HH agency
Addendum entered by Nery Cooper 06/12/25 12:44:
Pt will need a script for rolling walker
Addendum entered by Nery Cooper 06/12/25 12:29:
PT rec HH. Pt provided choices of [facility], [facility] and [facility]. Pt selected [facility] Pt is set-up for HH with [facility].
Plan: Home with [facility]
Disregard previous note (original note) below
Original Note:
Reviewed chart. Met with pt bedside. Having Brain MRI today
Plan: Home no needs
Plan: Home with home health and walker
[2025-06-12 11:17] LABS: Glucose - Point of Care 287 mg/dl (70-99)
[2025-06-12] MEDS: NOVOLOG FLEXPEN-LOW RESISTANCE 3 UNITS SC (12:07)
[2025-06-12] MEDS: APRESOLINE 5 MG IV ×2 (12:09→20:26)
--- NOTE | 2025-06-12 12:38 | W.PN.HOSP.TC ---
Today's Communication/Plan
-
Monitor vital signs see plan
Add hydralazine as needed
Increase amlodipine to 10 mg
Continue with insulin
Start fluid restriction
Monitor sodium
Discussed with spouse
Assessment / Plan
Assessment / Plan
General: No Apparent Distress and Conversant
HEENT: PERRLA
Respiratory: Clear; No Wheezes
Cardiac: Regular Rhythm
GI: Soft and Non Tender
Musculoskeletal: No Edema
Neuro: AO x 3
Psych: Calm
Symptomatic Bradycardia
Cardiology following
-He is not on AV blocking medications at home
-hold Pradaxa (he is not sure why he is on this medication). Per spouse likely was started by PCP to prevent stroke
-follow up Lyme testing neg
s/p PPM 06/10
*Use of Pradaxa - patient is unsure why he is on this medication. He denies history of atrial fibrillation. Per , may have been started by ?Vascular surgeon. Restarted Pradaxa
Leukocytosis
-patient without signs of infection
-CXR without e/o pneumonia.
COVID-negative, UA noted. Follow urine culture, blood
-test covid, urine culture no growth, blood culture NGTD
-follow up Lyme as above
Hyponatremia
-patient is on Losartan - HCTZ at home - hold HCTZ
started losartan
Monitor sodium
Urine and serum studies, start fluid restriction
Mild ADELAIDA
Improving
-follow up repeat post fluids
-hold HCTZ
Essential HTN
-cw Amlodipine, increase to 10 mg
cw losartan; hold HCTZ
-monitor BP, IV hydralazine
Non Ischemic myocardial injury
-no chest pain
monitor
Hyperkalemia
resolved
DM
Hyperglycemia
-follow up A1c 7.7
Restarted Lantus, lispro
- Restart WINE STEWARD Glimepiride; hold metformin
Pancreatic CA s/p Whipple
-Creon with meals
DVT PPx pradaxa
FULL CODE
PT/OT
I spent a total of 52 minutes with the patient or on the floor. More than 50% of this time involved counseling and coordination of care.
Anticipated Discharge: Within 24 hours
Subjective/Interval History
-
Date of Service: June 12, 2025
has neck pain
Objective Data
-
Labs:
Laboratory Results
06/12/25
06:52
WBC 14.1 H
Hgb 10.7 L
Hct 31.5 L
Plt Count 218
Sodium 129 L
Potassium 4.0
Chloride 100
Carbon Dioxide 26
BUN 16
Creatinine 1.1
Glucose 172 H
Calcium 8.6
Total Bilirubin 0.3
AST 33
ALT 22
Alkaline Phosphatase 150 H
Vital Signs:
Vital Signs
Temp Pulse Resp BP Pulse Ox
98.4 F 60 12 190/68 96
06/12/25 11:00 06/12/25 12:09 06/12/25 11:00 06/12/25 12:09 06/12/25 11:00
I&O
06/11/25 06/12/25 06/13/25
06:59 06:59 06:59
Intake Total 720 / 720 960 / 960
Output Total 1275 / 1275 1600 / 1600
Balance -555 / -555 -640 / -640
[2025-06-12 15:54] LABS: Glucose - Point of Care 190 mg/dl (70-99)
[2025-06-12] MEDS: NSS 500 IV (16:26)
[2025-06-12 17:00] LABS: Glucose - Point of Care 161 mg/dl (70-99)
--- NOTE | 2025-06-12 17:05 | PTCARENOTE ---
pt OOB to chair with in room. pt alerted me that pt felt like he was going to pass out. pt very flushed and drowsy upon entering room. with help of staff, pt placed back in bed. BP 163/63, HR in 60s on telemetry, afebrile, 95% on room air,
RR 16. no complaints of chest pain or SOB. provider notified, orthostatic VS ordered and 500cc bag of NSS. plan of care ongoing.
[2025-06-12] MEDS: CRESTOR 5 MG PO (17:09)
[2025-06-12] MEDS: LANTUS 0.1 UNITS SC (18:07)
[2025-06-12 22:00] LABS: Glucose - Point of Care 182 mg/dl (70-99)
[2025-06-13 03:45] VITALS: BP 155/68
[2025-06-13] MEDS: ULTRAM 25 MG PO ×2 (04:14→11:03)
[2025-06-13] MEDS: TYLENOL 650 MG PO (06:02)
[2025-06-13 07:00] VITALS: BP 167/64
[2025-06-13 07:13] LABS: Glucose - Point of Care 134 mg/dl (70-99)
[2025-06-13] MEDS: NOVOLOG FLEXPEN-LOW RESISTANCE SC (08:09)
[2025-06-13 08:15] LABS: Hematocrit 32.8 % (39.0-52.0); Hemoglobin 10.6 g/dL (13.0-18.0); Mean Corp Hgb Conc. 32.3 g/dL (33.0-37.0); Mean Corpuscular Volume 80.0 fL (80.0-94.0); Nucleated Red Blood Cells % 0 % (-); Platelet Count 247 10^3/uL (130-400); Red Cell Dist. Width 13.8 % (11.5-14.5)
[2025-06-13] MEDS: NORVASC 10 MG PO (08:26)
[2025-06-13] MEDS: AMARYL 4 MG PO (08:27)
[2025-06-13] MEDS: PRADAXA 150 MG PO (08:27)
[2025-06-13] MEDS: COZAAR 100 MG PO (08:27)
[2025-06-13] MEDS: BenGay-Like 1 APPLIC TOPICAL ×2 (08:27→12:14)
[2025-06-13] MEDS: NOVOLOG FLEXPEN 6 UNITS SC ×2 (08:28→12:15)
[2025-06-13] MEDS: ZENPEP DELAYED RELEASE CAPSULE 1 CAPSULE PO ×2 (08:29→10:35)
[2025-06-13 09:03] LABS: ALT (SGPT) 18 U/L (0-50); AST (SGOT) 24 U/L (17-59); Albumin 2.8 g/dl (3.5-5.0); Alkaline Phosphatase 158 U/L (38-126); Blood Urea Nitrogen 15 mg/dl (9-20); Calcium 8.5 mg/dl (8.4-10.2); Carbon Dioxide 24 mmol/L (22-30); Chloride 101 mmol/L (98-107); Estimated Creatinine Clearance 51 ml/min; Glucose 125 mg/dl (70-99); Potassium 3.8 mmol/L (3.5-5.1); Sodium 130 mmol/L (135-145); Total Protein 5.2 g/dl (6.3-8.2); eGFR > 60.00
[2025-06-13 09:57] VITALS: BP 167/64; BP 168/71; BP 171/66; PULSE 56; PULSE 61; PULSE 77
[2025-06-13] MEDS: APRESOLINE 5 MG IV (10:35)
[2025-06-13 11:00] VITALS: BP 171/64
[2025-06-13] MEDS: LIDOCAINE 4% PATCH 1 PATCH TOPICAL (11:25)
--- NOTE | 2025-06-13 11:31 | W.PN.HOSP.TC ---
Addendum entered and electronically signed by Jesús Vargas MD 06/13/25 12:51:
Suspect renal insufficiency, I do not have previous labs however admission creatinine was 1.4 which appears to be higher than discharge creatinine
Original Note:
Today's Communication/Plan
-
Monitor vital signs see plan
Not dizzy today
Feeling better, discharge today
Discussed with partner
Time of discharge 38 minutes
Assessment / Plan
Assessment / Plan
General: No Apparent Distress and Conversant
HEENT: PERRLA
Respiratory: Clear; No Wheezes
Cardiac: Regular Rhythm, pacemaker
GI: Soft and Non Tender
Musculoskeletal: No Edema
Neuro: AO x 3
Psych: Calm
Symptomatic Bradycardia, complete heart block
Cardiology following
-He is not on AV blocking medications at home
Pradaxa restarted
-follow up Lyme testing neg
s/p PPM 06/10, patient to follow-up with cardiology outpatient
*Use of Pradaxa - patient is unsure why he is on this medication. He denies history of atrial fibrillation. Per , may have been started by ?Vascular surgeon. Restarted Pradaxa
Leukocytosis
-patient without signs of infection
-CXR without e/o pneumonia.
COVID-negative, UA noted. Follow urine culture, blood
-test covid, urine culture no growth, blood culture NGTD
Lyme negative
Hyponatremia
-patient is on Losartan - HCTZ at home - hold HCTZ
started losartan
Monitor sodium
Urine and serum studies, continue fluid restriction. BMP outpatient with PCP next week
Mild ADELAIDA
Improving
-follow up repeat post fluids
-hold HCTZ
Essential HTN
-cw Amlodipine, increase to 10 mg
cw losartan; hold HCTZ
-monitor BP, IV hydralazine
Mild orthostatic hypotension
Resolved
Non Ischemic myocardial injury
-no chest pain
monitor
Hyperkalemia
resolved
DM
Hyperglycemia
-follow up A1c 7.7
Restarted Lantus, lispro
- Restart COUNSELOR SUPERVISOR Glimepiride; restart metformin
Pancreatic CA s/p Whipple
-Creon with meals
DVT PPx pradaxa
FULL CODE
PT/OT
Anticipated Discharge: Today
Subjective/Interval History
-
Date of Service: June 13, 2025
denies nausea
Objective Data
-
Labs:
Laboratory Results
06/13/25
06:59
WBC 13.4 H
Hgb 10.6 L
Hct 32.8 L
Plt Count 247
Sodium 130 L
Potassium 3.8
Chloride 101
Carbon Dioxide 24
BUN 15
Creatinine 1.0
Glucose 125 H
Calcium 8.5
Total Bilirubin 0.4
AST 24
ALT 18
Alkaline Phosphatase 158 H
Vital Signs:
Vital Signs
Temp Pulse Resp BP Pulse Ox
97.7 F 61 12 171/64 94
06/13/25 11:00 06/13/25 11:00 06/13/25 11:00 06/13/25 11:00 06/13/25 11:00
I&O
06/12/25 06/13/25 06/14/25
06:59 06:59 06:59
Intake Total 960 / 960 1260 / 1260
Output Total 1600 / 1600 1550 / 1550
Balance -640 / -640 -290 / -290
[2025-06-13 11:37] LABS: Glucose - Point of Care 236 mg/dl (70-99)
--- NOTE | 2025-06-13 11:46 | W.DCSUMMARY ---
Discharge Summary
Discharge Data
Date of Admission: 06/09/25
Date of Discharge: 06/13/25
-
Pending Results: No
Hospital Course
85-year-old male with past medical history of essential hypertension, diabetes mellitus, pancreatic cancer status post Whipple's came to the hospital with complete heart block. Patient was seen by cardiology for hospitalization and was taken for
pacemaker placement. Patient also had leukocytosis which continued to improve over time without any antibiotics. On admission patient also had hyponatremia and his hydrochlorothiazide was discontinued. Patient was also put on fluid restriction.
His blood pressure was still elevated so his amlodipine was increased. Once his symptoms continue to improve over time, he was then discharged home with instructions to follow-up with all his physicians outpatient.
Discharge Plan
-
Patient Disposition: Home with Home Care
Discharge Diagnosis/Procedures: Heart block, s/p pacemaker implant
Hyponatremia
Essential HTN
Diet: Diabetic, Carb Controlled and Restrict fluids to 48 oz
Activity: As tolerated
Driving Restrictions: No driving for 1 week
Blood Work: bmp early next week with pcp
Stand Alone Forms: [facility] - Implanted Device
Referrals:
[facility] [Provider Group] - 06/17/25 2:00 pm
Referral Note: Post device incision check appointment
Nishant Chavez MD [Family Provider, [facility]] - in less than 1 week
Prescriptions:
New
amlodipine 10 mg Tablet
10 mg PO DAILY Qty: 30 0RF
Analgesic [place] (m.salic-menth) 15-10 % Cream
1 applic topical QID Qty: 28 0RF
lidocaine 4 % Adhesive Patch,Medicated
1 patch topical DAILY Qty: 30 0RF
tramadol 50 mg Tablet
25 mg PO Q6HPRN PRN (Reason: mod-severe pain) Qty: 15 0RF
losartan 100 mg Tablet
100 mg PO DAILY Qty: 30 0RF
Continued
insulin glargine [Lantus U-100 Insulin] 100 unit/mL Solution
10 unit SC QPM
glimepiride 4 mg Tablet
4 mg PO DAILY
metformin 500 mg Tablet Extended Release 24 Hr
1,000 mg PO BID
insulin lispro 100 unit/mL Insulin Pen
6 unit SC TID
rosuvastatin 5 mg Tablet
5 mg PO DAILY
Creon 12,000-38,000 -60,000 unit Capsule,Delayed Release(Dr/Ec)
1 cap PO TID
dabigatran etexilate [Pradaxa] 150 mg Capsule
150 mg PO BID
Discontinued
amlodipine 5 mg Tablet
5 mg PO DAILY
losartan-hydrochlorothiazide 100-25 mg Tablet
1 tab PO DAILY
Discharge Orders:
Discharge Patient (As Directed); Ordered 06/13/25
Ordered By: Jesús Vargas
Discharge Date and Time
Discharge Date/Time: 06/13/25 13:05
Print Language: [email or web address]
--- NOTE | 2025-06-13 11:59 | PN.CDI ---
CDI
- -
CDI:
Physician Documentation Request
Admit Date: 06/09/25 19:09
Dear Doctor Sam,
Patient admitted for heart block.
06/12 Hospitalist PN: 'Mild ADELAIDA, Improving -follow up repeat post fluids -hold HCTZ'
Laboratory Tests
06/09/25 06/13/25
15:27 06:59
Creatinine 1.4 H 1.0
The purpose of this query is not to question medical judgement, but to ensure the accuracy of the conditions reported for your patient.
There is either a lack of clinical support for this condition in the current medical record, or there is a lack of recognized standard criteria to support the condition.
Criteria for ADELAIDA*
1 Increase in serum creatinine by > or = to 0.3 mg/dL (> or = to 26.5 micromol/L) within 48 hours, OR
2 Increase in serum creatinine to > or = to 1.5 times baseline, which is known or presumed to have occurred within 7 days, OR
3 Urine volume < 0.5 nL/kg/hour for six hours
The request is for one of the following:
- Additional documentation to support the condition. Indicate if this is in lieu of what may be considered standard criteria, and/or support why the standard criteria may not be present for this patient.
- A more appropriate diagnosis, reflecting the patient's condition
- ADELAIDA remains a known or suspected condition for this patient and is further supported by (include additional documentation in the medical record)
- ADELAIDA has been ruled out and a more appropriate diagnosis for this patient's condition is .
- Other (please specify)
- Unable to determine
Use of terms such as suspected, likely, concern for, or probable (associated with a specific diagnosis that is being evaluated, monitored, or treated as if it exists) are acceptable and can be coded in the inpatient setting, when documented at the
time of discharge.
Thank you,
Jennifer Yepez RN, BSN
CDI Specialist
Available via [employer] text
Please use your independent medical judgment in providing your response.
--- NOTE | 2025-06-13 12:08 | CM ---
MD entered order for discharge .
Spoke with and pt in room.They agree with discharge.
IMM reviewed signed on chart.
MD wrote for walker .PT therapist tt need for walker.
here to drive him home
PLAN Home with [facility] fax [phone]
[2025-06-13] MEDS: NOVOLOG FLEXPEN-LOW RESISTANCE 2 UNITS SC (12:15)
== END 2025-06-13 13:05 | disposition home health service (06) | DRG 243 ==
LOC: 4 EAST ACU 19:09
PROVIDERS: Internal Medicine Cardiovascular Disease; ADMITTING PHYSICIAN Student in an Organized Health Care Education/Training Program; ATTENDING PHYSICIAN Internal Medicine; CONSULT PHYSICIAN Internal Medicine Cardiovascular Disease; EMERGENCY PHYSICIAN Emergency Medicine; FAMILY PHYSICIAN Family Medicine
PROC: 0JH606Z Insertion of Pacemaker, Dual Chamber into Chest Subcutaneous Tissue and Fascia, Open Approach (ICD-10-PCS; 2025-06-10)
PROC: 02HK3JZ Insertion of Pacemaker Lead into Right Ventricle, Percutaneous Approach (ICD-10-PCS; 2025-06-10)
PROC: 02H63JZ Insertion of Pacemaker Lead into Right Atrium, Percutaneous Approach (ICD-10-PCS; 2025-06-10)
DX: I44.2 Atrioventricular block, complete (principal); E87.1 Hypo-osmolality and hyponatremia; I5A Non-ischemic myocardial injury (non-traumatic); E11.65 Type 2 diabetes mellitus with hyperglycemia; I10 Essential (primary) hypertension; E78.5 Hyperlipidemia, unspecified; E87.5 Hyperkalemia; N28.9 Disorder of kidney and ureter, unspecified; D72.829 Elevated white blood cell count, unspecified; I95.1 Orthostatic hypotension; W06.XXXA Fall from bed, initial encounter; Y93.89 Activity, other specified; Y92.003 Bedroom of unspecified non-institutional (private) residence as the place of occurrence of the external cause; Z85.07 Personal history of malignant neoplasm of pancreas; Z90.411 Acquired partial absence of pancreas; Z87.891 Personal history of nicotine dependence; Z79.84 Long term (current) use of oral hypoglycemic drugs; Z79.4 Long term (current) use of insulin
CPT/HCPCS: 33208; 71045; 80048; 80053; 81003; 81015; 82550; 82962; 83036; 83605; 83735; 83930; 83935; 84300; 84443; 84484; 85025; 85610; 85730; 86618; 87040; 87086; 87811; 93005; 93306; 96361; 96372; 97116; 97162; 99291; C1769; C1785; C1887; C1898; Q9967